=== PATIENT | male | born 1970 | race Caucasian/White ===

== ENCOUNTER 2019-03-17 08:21 | Day surgery (SDC) | payer OTHER ==
[~2019-03-17] VITALS: Ht 175.3 cm; Wt 84.8 kg
[~2019-03-17 08:21] MED LIST: ALPRAZOLAM; LIBRIUM; LOSARTAN; VERAPAMIL; XANAX
[2019-03-17 09:23] VITALS: BP 121/75; PULSE 74; RESP 12; Ht 175.3 cm; Wt 84.8 kg
[2019-03-17] MEDS ORDERED: PROPOFOL 40 ML ONE (09:50)
[2019-03-17 10:17] VITALS: BP 108/66; PULSE 60; RESP 12
== END 2019-03-17 13:39 | disposition home or self-care (01) ==
LOC: GIL 08:21
PROVIDERS: ATTEND Internal Medicine Gastroenterology
DX: Z12.11 Encounter for screening for malignant neoplasm of colon (principal); D12.5 Benign neoplasm of sigmoid colon; K64.4 Residual hemorrhoidal skin tags; K57.30 Diverticulosis of large intestine without perforation or abscess without bleeding; I10 Essential (primary) hypertension; F17.200 Nicotine dependence, unspecified, uncomplicated; E66.9 Obesity, unspecified; Z68.27 Body mass index [BMI] 27.0-27.9, adult
CPT/HCPCS: 45380; 88305; Z7610